=== PATIENT | female | born 1940 | race Asian ===

== ENCOUNTER 2018-03-25 06:52 | Day surgery (SDC) | payer MEDICARE, SELFPAY ==
[2018-03-25 07:07] VITALS: BP 131/70; PULSE 72; RESP 16; TEMP 36.3; O2SAT 97; BMI 24.3
[2018-03-25] MEDS: SODIUM CHLORIDE 0.9% 1,000 ML 200 ML IV (07:29)
--- NOTE | 2018-03-25 08:19 | PM.HP.1 ---
History of Present Illness Date Patient Seen: 03/25/18 Time Patient Seen: 08:19 Chief complaint: [id number] Patient History Medical History Uterine cancer (Acute) Essential hypertension (Acute) History of colonic polyps (Acute) Surgical History Status post RUBIN-BSO (Acute) Family & Social History Social History: household members none Tobacco & Substance use: Quit 15 years ago Meds Home Medications Medication Instructions Recorded Confirmed Type triamterene-hydrochlorothiazid 1 tab PO QDAY #0 09/03/17 03/25/18 History Calcium 600 600 mg PO BID 03/25/18 03/25/18 History Glucosamine 2 DAILY 03/25/18 History Tumeric 1 tsp PO TID 03/25/18 History Vitamin C 1,000 mg PO DAILY 03/25/18 03/25/18 History Vitamin D3 2,000 mg PO DAILY 03/25/18 03/25/18 History red yeast rice BID 03/25/18 History vitamin E 400 mg PO BID 03/25/18 03/25/18 History Allergies Allergy/AdvReac Type Severity Reaction Status Date / Time aspirin [ASPIRIN] AdvReac Intermediate Unverified 03/25/18 08:24 Penicillins [PENICILLINS] AdvReac Mild Verified 03/25/18 08:24 Review of Systems Review of Systems All systems reviewed & are unremarkable except as noted in HPI and below Genitourinary Comments: Hysterectomy last month. Has recovered nicely. Musculoskeletal Comments: Knee arthritis Exam Vital Signs (past 8 hours): Vital Signs - 8 hr 03/25/18 07:07 Temperature 97.4 F L Pulse Rate 72 Respiratory Rate 16 Blood Pressure 131/70 H Pulse Oximetry 97 Pulse Oximetry 97 Oxygen Delivery Method Room Air Narrative Exam Narrative: Co Operative no apparent distress. Lungs are clear no rales or rhonchi heart regular rate and rhythm no murmur or gallop abdomen is soft nontender without mass. Incision well healed. Alert and orient x3. Assessment & Plan Plan: Assessment/Plan Narrative: Do for screening colonoscopy. Last exam was 5 years ago. She had 2 polyps removed. I have discussed the procedure and the rationale with the patient including risks of bleeding, perforation which would necessitate a major operation, failure to find remove all lesions and the potential to tattoo. They appeared to understand and wished to proceed.
--- NOTE | 2018-03-25 08:26 | SUR.OPER ---
to endo from [facility] via cart respiratins unlabored iv patent positined per self for procedure
--- NOTE | 2018-03-25 08:27 | P.HP_ITS ---
History of Present Illness Date Patient Seen: 03/25/18 Time Patient Seen: 08:19 Chief complaint: [id number] Patient History Medical History Uterine cancer (Acute) Essential hypertension (Acute) History of colonic polyps (Acute) Surgical History Status post RUBIN-BSO (Acute) Family & Social History Social History: household members none Tobacco & Substance use: Quit 15 years ago Meds Home Medications Medication Instructions Recorded Confirmed Type triamterene-hydrochlorothiazid 1 tab PO QDAY #0 09/03/17 03/25/18 History Calcium 600 600 mg PO BID 03/25/18 03/25/18 History Glucosamine 2 DAILY 03/25/18 History Tumeric 1 tsp PO TID 03/25/18 History Vitamin C 1,000 mg PO DAILY 03/25/18 03/25/18 History Vitamin D3 2,000 mg PO DAILY 03/25/18 03/25/18 History red yeast rice BID 03/25/18 History vitamin E 400 mg PO BID 03/25/18 03/25/18 History Allergies Allergy/AdvReac Type Severity Reaction Status Date / Time aspirin [ASPIRIN] AdvReac Intermediate Unverified 03/25/18 08:24 Penicillins [PENICILLINS] AdvReac Mild Verified 03/25/18 08:24 Review of Systems Review of Systems All systems reviewed & are unremarkable except as noted in HPI and below Genitourinary Comments: Hysterectomy last month. Has recovered nicely. Musculoskeletal Comments: Knee arthritis Exam Vital Signs (past 8 hours): Vital Signs - 8 hr 3 03/25/18 07:07 Temperature 97.4 F L Pulse Rate 72 Respiratory Rate 16 Blood Pressure 131/70 H Pulse Oximetry 97 Pulse Oximetry 97 Oxygen Delivery Method Room Air Narrative Exam Narrative: Co Operative no apparent distress. Lungs are clear no rales or rhonchi heart regular rate and rhythm no murmur or gallop abdomen is soft nontender without mass. Incision well healed. Alert and orient x3. Assessment & Plan Plan: Assessment/Plan Narrative: Do for screening colonoscopy. Last exam was 5 years ago. She had 2 polyps removed. I have discussed the procedure and the rationale with the patient including risks of bleeding, perforation which would necessitate a major operation, failure to find remove all lesions and the potential to tattoo. They appeared to understand and wished to proceed.
--- NOTE | 2018-03-25 08:27 | PM.PREOP ---
Pre-operative Note Interval Note Pre-op Check: History & Physical exam performed today H&P completed within 30 days and has changed as indicated here:: None ASA Class (for procedural sedation): II
--- NOTE | 2018-03-25 09:04 | PM.OP.ENDO ---
Operative Date/Time/Diagnoses - Date of procedure: 03/25/18 Time of procedure: 09:04 Pre-op diagnosis: Personal history of polyps. Last exam 5 years ago. Post-op diagnosis: same (Normal exam today) Procedure & Clinicians Study performed: Colonoscopy for screening purposes Same procedure as scheduled: Yes Indications: Personal history of polyps. Last exam 5 years ago. Surgeon: Geronimo Mcintosh Procedure Notes SCOAP/Timeout: Performed Procedure in detail: The patient was placed in the left lateral decubitus position and underwent IV sedation directed by the surgeon consisting of fentanyl and Versed. Digital exam was unremarkable. The scope was inserted and advanced through the rectum into the sigmoid, descending, transverse, and ascending colon. No lesions were seen. There was some tortuosity. The patient had to be repositioned in a stiffener inserted in order to reach the cecum. The cecum was reached identified by the ileocecal valve and the appendiceal opening. The ileocecal valve was not able to be cannulated. The scope was gradually brought out. No Polyps were found. The scope ultimately was retroflexed in the rectum. The appearance was normal. The scope was removed and the patient tolerated the procedure well Scope withdrawal time: Almost 8 min Sedation minutes: 28 Findings: other findings (Normal examination) Specimen(s): none sent Complications: none Recommendations: Colonscopy in 5 years (Due to history of polyps) Follow up: as needed Disposition: PACU
[2018-03-25 09:07] VITALS: BP 145/70; PULSE 69; RESP 12; TEMP 36.2; O2SAT 98
[2018-03-25] MEDS: fentaNYL 250 MCG/5 ML INJ 200 MCG IV (09:07)
[2018-03-25] MEDS: MIDAZOLAM 5 MG/5 ML VIAL 3 MG IV (09:08)
[2018-03-25 09:11] VITALS: BP 146/67; PULSE 65; RESP 12; O2SAT 98
[2018-03-25 09:16] VITALS: BP 143/72; PULSE 63; RESP 10; TEMP 36.6; O2SAT 98
[2018-03-25 09:21] VITALS: BP 150/72; PULSE 60; RESP 14; TEMP 36.6; O2SAT 97
[2018-03-25 09:34] VITALS: BP 143/65; PULSE 65; RESP 14; TEMP 36.8; O2SAT 98
[2018-03-25] MEDS: ONDANSETRON 4 MG ODT 8 MG PO (09:48)
--- NOTE | 2018-03-25 10:32 | SUR.PHASEII ---
0940 patient with c/o nausea. no relief with queasy aromatic therapy. provider notified and 8mg ondasteron SL given. relief obtianed. patient denies nausea, color improved. steady gait upon departure.
== END 2018-03-25 09:50 | disposition home or self-care (01) ==
PROVIDERS: Family Provider Family Medicine; PCP Family Medicine; Visit Provider Specialist
PROC: 0DJD8ZZ Inspection of Lower Intestinal Tract, Via Natural or Artificial Opening Endoscopic (ICD-10-PCS; CPT 45378; principal; 2018-03-25 07:45)
DX: Z12.11 Encounter for screening for malignant neoplasm of colon (principal); Z86.010 Personal history of colon polyps; I10 Essential (primary) hypertension
CPT/HCPCS: G0105; 99152; 99153; J2250; J3010

== ENCOUNTER → 2020-03-28 16:36 | Outpatient (CLI) | payer MEDICARE, SELFPAY ==
--- NOTE | 2020-03-28 | DI.RAD.S_ITS ---
PROCEDURE: XR HAND RT 2V INDICATIONS: Hand Pain, Bilateral,Arthritis TECHNIQUE: 2 views of the hand(s) acquired. COMPARISON: None. FINDINGS: Bones: No fractures or dislocations. Carpal bones are normally aligned. No suspicious bony lesions. First CMC and triscaphe joint degeneration. Diffuse interphalangeal joint degeneration. Soft tissues: No suspicious soft tissue calcifications. IMPRESSION: Diffuse right hand joint degeneration. Dictated by: Nolberto Moulton M.D. on 03/28/2020 at 17:05 Approved by: Nolberto Moulton M.D. on 03/28/2020 at 17:07
--- NOTE | 2020-03-28 | DI.RAD.S_ITS ---
PROCEDURE: XR HAND LT 2V INDICATIONS: Hand Pain, Bilateral,Arthritis TECHNIQUE: 2 views of the hand(s) acquired. COMPARISON: None. FINDINGS: Bones: No fractures or dislocations. Carpal bones are normally aligned. No suspicious bony lesions. Diffuse interphalangeal joint degeneration most pronounced at the ring finger PIP joint. First CMC and triscaphe joint degeneration Soft tissues: No suspicious soft tissue calcifications. IMPRESSION: Diffuse left hand joint degeneration most pronounced at the ring finger PIP joint. Dictated by: Nolberto Moulton M.D. on 03/28/2020 at 17:04 Approved by: Nolberto Moulton M.D. on 03/28/2020 at 17:05
== END ==
PROVIDERS: Family Provider Family Medicine; PCP Family Medicine; Referring Provider Family Medicine; Visit Provider Family Medicine
DX: M79.641 Pain in right hand (principal); M79.642 Pain in left hand; M18.0 Bilateral primary osteoarthritis of first carpometacarpal joints; M19.042 Primary osteoarthritis, left hand; M19.041 Primary osteoarthritis, right hand
CPT/HCPCS: 73120

== ENCOUNTER → 2021-07-04 11:34 | Outpatient (CLI) | payer OTHER, SELFPAY ==
--- NOTE | 2021-07-04 | DI.RAD.S_ITS ---
PROCEDURE: XR DEXA AXIAL SKELETON INDICATIONS: Asymptomatic menopausal state COMPARISON: None. FINDINGS: This blank DEXA report has been sent in error by the PACS system. The correct and complete report will be forthcoming in 1-2 days. Thank you for your patience and understanding. Dictated by: Usha Clemons MD, PhD on 07/04/2021 at 13:40 Approved by: Usha Clemons MD, PhD on 07/04/2021 at 13:40
== END ==
PROVIDERS: PCP Family Medicine; Referring Provider Family Medicine; Visit Provider Family Medicine
DX: M85.851 Other specified disorders of bone density and structure, right thigh (principal); Z78.0 Asymptomatic menopausal state
CPT/HCPCS: 77080

== ENCOUNTER → 2021-09-09 10:16 | Outpatient (CLI) | payer OTHER, SELFPAY ==
--- NOTE | 2021-09-09 | DI.MG.S_ITS ---
BILATERAL DIGITAL SCREENING MAMMOGRAM 3D/2D WITH CAD: 09/09/2021 CLINICAL: Routine screening. Comparison is made to exams dated: 01/28/2018 mammogram, 12/25/2010 mammogram, and 05/24/2009 mammogram - [facility]. The tissue of both breasts is heterogeneously dense. This may lower the sensitivity of mammography. Current study was also evaluated with a Computer Aided Detection (CAD) system. There are benign vascular calcifications in both breasts. No significant masses, calcifications, or other findings are seen in either breast. There has been no significant interval change. IMPRESSION: BENIGN There is no mammographic evidence of malignancy. A 1 year screening mammogram is recommended. This exam was interpreted at Station ID: [id number]. NOTE: For mammograms, a report in lay terms will be sent to the patient. Approximately 15% of breast malignancies will not be visualized mammographically. In the management of a palpable breast mass, a negative mammogram must not discourage biopsy of a clinically suspicious lesion. Electronically Signed By: Norberto solorio/fede:09/11/2021 10:00:17 letter sent: Normal Exam ACR BI-RADS Category 2: Benign Finding(s) 3342F
== END ==
PROVIDERS: PCP Family Medicine; Referring Provider Family Medicine; Visit Provider Family Medicine
DX: Z12.31 Encounter for screening mammogram for malignant neoplasm of breast (principal)
CPT/HCPCS: 77063; 77067

== ENCOUNTER → 2021-10-24 12:11 | Outpatient (CLI) | payer OTHER, SELFPAY ==
--- NOTE | 2021-10-24 13:11 | DI.CT.S_ITS ---
PROCEDURE: CT ABDOMEN PELVIS W CON INDICATIONS: Unspecified abdominal pain TECHNIQUE: After the administration of oral and IV contrast, axial sections were acquired from the lung bases to the pubic symphysis. Coronal and sagittal reformats were performed. For radiation dose reduction, the following was used: automated exposure control, adjustment of mA and/or kV according to patient size. COMPARISON: Outside Facility, RG, CT THORAX/ABDOMEN/PELVIS WITH CONTRAST, 01/31/2021, 12:10. FINDINGS: Image quality: Excellent. Lung bases: Punctate calcified granuloma. No pleural effusion. Heart: No significant findings. ABDOMEN: Liver: Small hepatic cysts, unchanged. No suspicious focal lesion. No scalloping. Gallbladder: Not distended. Biliary ducts: Unremarkable. Pancreas: No peripancreatic fluid collection. Spleen: Unremarkable. Adrenal Glands: No nodule. Kidneys and Ureters: A few bilateral simple renal cysts. No hydronephrosis. Stomach and Bowel: Stomach is not distended. No small bowel obstruction. Colon is not distended. Peritoneum: Enhancing nodule at the left pericolic gutter measuring 1.9 x 1.2 cm, (2/27). Nodule in the right lower quadrant measuring 2.7 x 1.3 cm, (2/51). There is nodular thickening adjacent to the descending colon, (2/27). There is omental caking, (2/53). There is a small volume of free fluid in the pelvis. Suspect small implants in the pelvic cul-de-sac. Ventral Wall: No hernia. Abdominal Nodes: No retroperitoneal or mesenteric adenopathy by size criteria. Vessels: Aorta and inferior vena cava are normal in size. Moderate calcified plaque. PELVIS: Pelvic Organs: Uterus is absent. Bladder: Unremarkable. Pelvic Nodes: No enlarged lymph nodes. Miscellaneous: No inguinal hernias are seen. Bones: Scoliosis. DDD. No suspicious lesion seen. IMPRESSION: 1. Enhancing peritoneal nodules and omental caking. Findings highly suspicious for peritoneal carcinomatosis. 2. Small volume of ascites in the pelvic cul-de-sac. Results called to the office of Dr. Carney. Dictated by: Levar Alfred M.D. on 10/24/2021 at 15:55 Approved by: Levar Alfred M.D. on 10/24/2021 at 16:14
== END ==
PROVIDERS: PCP Family Medicine; Referring Provider Family Medicine; Visit Provider Family Medicine
DX: R10.9 Unspecified abdominal pain (principal); R19.00 Intra-abdominal and pelvic swelling, mass and lump, unspecified site; R18.8 Other ascites
CPT/HCPCS: 74177

== ENCOUNTER → 2022-04-27 10:37 | Outpatient (CLI) | payer OTHER, SELFPAY ==
[2022-04-27 12:36] LABS: Add Manual Diff / Slide Review NO; Basophils Absolute Auto 0 /uL (0-100); Basophils Percent Auto 0.2 % (0-2); Eosinophils Absolute Auto 0 /uL (0-450); Eosinophils Percent Auto 0.3 % (2-4); Hemoglobin 8.6 g/dL (12.0-16.0); Lymphocytes Absolute Auto 1500 /uL (1100-4500); Lymphocytes Percent Auto 37.4 % (25-40); Mean Corpuscular HGB Conc 34.6 % (30-36); Mean Corpuscular Hemoglobin 33.6 PG (26-34); Monocytes Absolute Auto 300 /uL (0-900); Monocytes Percent Auto 7.6 % (3-14); Neutrophils Absolute Auto 2100 /uL (1500-7000); Neutrophils Percent Auto 54.5 % (50-75); Platelet Count 61 X10^3/uL (150-400); Red Blood Cell Count 2.57 X10^6/uL (4.0-5.2); Red Cell Distribution Width 19.7 % (11.6-14.8); White Blood Cell Count 3.9 X10^3/uL (4.5-11.0)
== END ==
PROVIDERS: PCP Family Medicine; Referring Provider Obstetrics & Gynecology Gynecologic Oncology; Visit Provider Obstetrics & Gynecology Gynecologic Oncology
DX: C54.1 Malignant neoplasm of endometrium (principal)
CPT/HCPCS: 36415; 85025

== ENCOUNTER → 2023-06-06 07:55 | Outpatient (CLI) | payer OTHER, SELFPAY ==
[2023-06-06 08:43] LABS: BUN Creatinine Ratio 24.1 (6-22); Blood Urea Nitrogen 21 mg/dL (7-17); Calcium 9.7 mg/dL (8.4-10.2); Carbon Dioxide 26 mmol/L (22-32); Chloride 102 mmol/L (98-107); Estimated Glomerular Filt Rate > 60 mL/min (>60); Glucose 98 mg/dL (80-110); HEMOLYSIS < 15 (0-50); Potassium 3.9 mmol/L (3.4-5.1); Sodium 133 mmol/L (137-145)
== END ==
PROVIDERS: PCP Family Medicine; Referring Provider Nurse Practitioner Obstetrics & Gynecology; Visit Provider Nurse Practitioner Obstetrics & Gynecology
DX: C54.1 Malignant neoplasm of endometrium (principal)
CPT/HCPCS: 36415; 80048

== ENCOUNTER → 2023-10-22 11:22 | Outpatient (CLI) | payer OTHER, SELFPAY ==
[2023-10-22 13:37] LABS: Alanine Aminotransferase 252 IU/L (<35); Albumin 3.3 g/dL (3.5-5.0); Albumin Globulin Ratio 0.9 (1.0-2.8); Alkaline Phosphatase 59 U/L (38-126); Aspartate Aminotransferase 119 IU/L (14-36); Bilirubin Total 0.5 mg/dL (0.2-1.3); Blood Urea Nitrogen 29 mg/dL (7-17); Calcium 9.1 mg/dL (8.4-10.2); Carbon Dioxide 19 mmol/L (22-32); Chloride 108 mmol/L (98-107); Estimated Glomerular Filt Rate 28 mL/min (>60); Globulin 3.6 g/dL (1.7-4.1); Glucose 99 mg/dL (80-110); HEMOLYSIS < 15 (0-50); Potassium 4.8 mmol/L (3.4-5.1); Sodium 134 mmol/L (137-145); Total Protein 6.9 g/dL (6.3-8.2)
== END ==
LOC: LAB 11:24
PROVIDERS: PCP Family Medicine; Referring Provider Obstetrics & Gynecology Gynecologic Oncology; Visit Provider Obstetrics & Gynecology Gynecologic Oncology
DX: C54.1 Malignant neoplasm of endometrium (principal)
CPT/HCPCS: 36415; 80053

== ENCOUNTER → 2023-11-13 11:48 | Outpatient (CLI) | payer OTHER, SELFPAY ==
[2023-11-13 13:02] LABS: Add Manual Diff / Slide Review NO; Basophils Absolute Auto 0 /uL (0-100); Basophils Percent Auto 0.2 % (0-2); Eosinophils Absolute Auto 200 /uL (0-450); Hematocrit 25.2 % (36-46); Hemoglobin 8.6 g/dL (12.0-16.0); Lymphocytes Absolute Auto 2300 /uL (1100-4500); Lymphocytes Percent Auto 33.4 % (25-40); Mean Corpuscular HGB Conc 34.1 % (30-36); Mean Corpuscular Hemoglobin 32.6 PG (26-34); Mean Corpuscular Volume 95.6 fL (80-100); Monocytes Absolute Auto 500 /uL (0-900); Monocytes Percent Auto 7.9 % (3-14); Neutrophils Absolute Auto 3800 /uL (1500-7000); Neutrophils Percent Auto 55.5 % (50-75); Platelet Count 228 X10^3/uL (150-400); Red Blood Cell Count 2.63 X10^6/uL (4.0-5.2); Red Cell Distribution Width 15.9 % (11.6-14.8); White Blood Cell Count 6.8 X10^3/uL (4.5-11.0)
[2023-11-13 13:25] LABS: Alanine Aminotransferase 115 IU/L (<35); Albumin Globulin Ratio 1.1 (1.0-2.8); Alkaline Phosphatase 53 U/L (38-126); Aspartate Aminotransferase 64 IU/L (14-36); BUN Creatinine Ratio 20.9 (6-22); Bilirubin Total 0.6 mg/dL (0.2-1.3); Blood Urea Nitrogen 29 mg/dL (7-17); Calcium 10.4 mg/dL (8.4-10.2); Carbon Dioxide 21 mmol/L (22-32); Chloride 107 mmol/L (98-107); Estimated Glomerular Filt Rate 38 mL/min (>60); Globulin 3.6 g/dL (1.7-4.1); Glucose 104 mg/dL (80-110); HEMOLYSIS 18 (0-50); Potassium 4.6 mmol/L (3.4-5.1); Sodium 135 mmol/L (137-145); Total Protein 7.6 g/dL (6.3-8.2)
== END ==
PROVIDERS: PCP Family Medicine; Referring Provider Obstetrics & Gynecology; Visit Provider Obstetrics & Gynecology
DX: C54.1 Malignant neoplasm of endometrium (principal)
CPT/HCPCS: 36415; 80053; 85025